=== PATIENT | female | born 1985 | race Caucasian/White ===

== ENCOUNTER 2019-07-06 14:33 | Inpatient (IN) ==
[2019-07-06] MEDS ORDERED: Lactated Ringers 1000 ml BAG 1,000 ML IV ONE (15:45)
[2019-07-06 17:11] LABS: Urine Benzodiazepine Screen None Detected (None Detect); Urine Opiates Screen None Detected (None Detect)
[2019-07-07] MEDS ORDERED: Oxytocin in LR 20 UNITS/1,000 ML BAG IVPB SCH (06:30)
[2019-07-07] MEDS ORDERED: Lactated Ringers 1000 ml BAG 1,000 ML IV SCH ×2 (06:30→14:00)
[2019-07-07 08:45] LABS: ABS Basophils 0.1 10^3/ul (0-0.2); ABS Lymphocytes 1.6 10^3/ul (1.0-4.8); ABS Monocytes 0.7 10^3/ul (0-0.8); Eosinophil % 0.3 %; Hematocrit 42 % (35-47); Hemoglobin 14.4 g/dL (12.0-16.0); Lymphocyte % 13.7 %; Mean Corpuscular HGB Conc 34 g/dL (31-36); Mean Corpuscular Hemoglobin 32 pg (27-31); Mean Corpuscular Volume 95 fL (80-97); Mean Platelet Volume 9.1 fL (7.4-10.4); Platelet Count 209 10^3/uL (150-450); Red Blood Count 4.45 10^6 /uL (3.70-4.87); Red Cell Distribution Width 13 % (10-15); White Blood Count 11.7 10^3/uL (3.5-10.8)
[2019-07-07] MEDS ORDERED: OBEPIDURAL 250 ML EPIDURAL ONE (12:52)
[2019-07-07] MEDS ORDERED: Bupivacaine 0.25% SDV PF 10 ML VIAL INJ ONE (13:11)
[2019-07-07] MEDS ORDERED: Sodium Citrate/Citric Acid LIQ 15 ML UDC PO PRN (13:53)
[2019-07-07] MEDS ORDERED: Lactated Ringers 1000 ml BAG 1,000 ML IV ONE (13:53)
[2019-07-07] MEDS ORDERED: Phenylephrine 40 mcg/mL 10mL (400mcg) SYRINGE IV PUSH PRN ×2 (13:53)
[2019-07-07] MEDS ORDERED: OBEPIDURAL 250 ML EPIDURAL SCH (14:00)
[2019-07-07] MEDS ORDERED: ceFOXitin 2 GM IVPREMIX 2 GM/50 ML BAG ONE (17:25)
[2019-07-07] MEDS ORDERED: ceFOXitin 2 GM IVPREMIX 2 GM/50 ML BAG IVPB ONE (17:26)
[2019-07-07] MEDS ORDERED: Morphine PF AMP (0.5MG/ML) 5 MG/10 ML AMP ONE (17:34)
[2019-07-07] MEDS ORDERED: Oxytocin 10 UNITS/ML 1 ML VIAL ONE ×2 (18:00→18:27)
[2019-07-07] MEDS ORDERED: Ondansetron 4 mg VIAL 2 MG/ML 2 ml VIAL ONE (18:00)
[2019-07-07] MEDS ORDERED: Carboprost Tromethamine 250 mcg 1 ml VIAL ONE ×2 (18:13→18:15)
[2019-07-07] MEDS ORDERED: DiMENhydriNATE IV 50 mg/ml 1 ml VIAL IV PUSH PRN (18:58)
[2019-07-07] MEDS ORDERED: Naloxone 0.4 mg VIAL 0.4 mg/ml 1 ml VIAL IV PRN ×2 (18:58→18:59)
[2019-07-07] MEDS ORDERED: Ondansetron 4 mg VIAL 2 MG/ML 2 ml VIAL IV PRN (18:59)
[2019-07-07] MEDS ORDERED: oxyCODONE/Acetamin 5/325 mg TAB PO PRN ×2 (18:59)
[2019-07-07] MEDS ORDERED: diPHENhydraMINE IV 50 MG/ML 1 ml VIAL (BENADRYL) IV PRN (18:59)
[2019-07-07] MEDS ORDERED: Dibucaine 1% OINT 28.35 GM TUBE PR PRN (19:16)
[2019-07-07] MEDS ORDERED: Glycerin ADULT 2.4 gm SUPP PR PRN (19:16)
[2019-07-07] MEDS ORDERED: Witch Hazel PAD JAR TOPICAL PRN (19:16)
[2019-07-07] MEDS: fentaNYL 100 mcg/2 ml 50 MCG/ML VIAL IV PRN ×2 (19:47→20:01)
[2019-07-07] MEDS ORDERED: Methylergonovine 0.2 mg AMPULE 1 ml AMP IM ONE (19:58)
[2019-07-07] MEDS ORDERED: Carboprost Tromethamine 250 mcg 1 ml VIAL IM ONE (19:59)
[2019-07-08] MEDS ORDERED: Methylergonovine 0.2 mg AMPULE 1 ml AMP ONE (01:44)
[2019-07-08 06:15] LABS: ABS Basophils 0.1 10^3/ul (0-0.2); ABS Lymphocytes 1.3 10^3/ul (1.0-4.8); ABS Monocytes 0.8 10^3/ul (0-0.8); Hematocrit 32 % (35-47); Lymphocyte % 8.2 %; Mean Corpuscular HGB Conc 34 g/dL (31-36); Mean Corpuscular Hemoglobin 33 pg (27-31); Mean Corpuscular Volume 95 fL (80-97); Mean Platelet Volume 8.1 fL (7.4-10.4); Platelet Count 157 10^3/uL (150-450); Red Blood Count 3.38 10^6 /uL (3.70-4.87); Red Cell Distribution Width 13 % (10-15); White Blood Count 15.8 10^3/uL (3.5-10.8)
[2019-07-10 08:07] VITALS: BP 107/72
[2019-07-10] MEDS ORDERED: Measles, Mumps,Rubella VACC 0.5 ML/VIAL SUBCUT ONE (16:20)
== END 2019-07-10 18:28 | disposition home or self-care (01) | DRG 788 ==
LOC: MCHOBOUT 14:33 → MCHOB 15:37
PROVIDERS: ADMIT Midwife; ATTEND Obstetrics & Gynecology